=== PATIENT | male | born 1950 | race Caucasian/White ===

== ENCOUNTER → 2023-09-26 09:36 | Outpatient (REF) | payer MEDICARE, OTHER, SELFPAY | LOC: RAD 09:36 | PROVIDERS: ATTENDING PHYSICIAN Internal Medicine Cardiovascular Disease; FAMILY PHYSICIAN Internal Medicine | DX: I71.43 Infrarenal abdominal aortic aneurysm, without rupture (principal) | CPT/HCPCS: 76770 ==

== ENCOUNTER → 2024-03-15 10:38 | Outpatient (REF) | payer MEDICARE, OTHER, SELFPAY | LOC: DHCBC/DCA 10:38 | PROVIDERS: ATTENDING PHYSICIAN Internal Medicine Cardiovascular Disease; FAMILY PHYSICIAN Internal Medicine | DX: I25.10 Atherosclerotic heart disease of native coronary artery without angina pectoris (principal); I21.19 ST elevation (STEMI) myocardial infarction involving other coronary artery of inferior wall | CPT/HCPCS: 78452; 93017; A9500; J2785 ==

== ENCOUNTER → 2024-04-12 09:49 | Outpatient (REF) | payer MEDICARE, OTHER, SELFPAY | LOC: HWRAD 09:49 | PROVIDERS: ATTENDING PHYSICIAN Internal Medicine Cardiovascular Disease; FAMILY PHYSICIAN Internal Medicine; REFERRING PHYSICIAN Internal Medicine | DX: I65.29 Occlusion and stenosis of unspecified carotid artery (principal); Z87.891 Personal history of nicotine dependence; I65.23 Occlusion and stenosis of bilateral carotid arteries | CPT/HCPCS: 71271; 93880 ==

== ENCOUNTER → 2024-08-31 09:47 | Outpatient (REF) | payer MEDICARE, OTHER, SELFPAY | LOC: RAD 09:47 | PROVIDERS: ATTENDING PHYSICIAN Internal Medicine Cardiovascular Disease; FAMILY PHYSICIAN Internal Medicine | DX: I71.43 Infrarenal abdominal aortic aneurysm, without rupture (principal) | CPT/HCPCS: 76770 ==

== ENCOUNTER → 2024-10-01 11:59 | Outpatient (REF) | payer MEDICARE, OTHER, SELFPAY | LOC: MRI 3T 11:59 | PROVIDERS: ATTENDING PHYSICIAN Physician Assistant Medical; FAMILY PHYSICIAN Internal Medicine | DX: M48.061 Spinal stenosis, lumbar region without neurogenic claudication (principal); M54.9 Dorsalgia, unspecified | CPT/HCPCS: 72148 ==

== ENCOUNTER → 2024-11-08 13:50 | Outpatient (REF) | payer MEDICARE, OTHER, SELFPAY | LOC: RAD 13:50 | PROVIDERS: ATTENDING PHYSICIAN Urology; FAMILY PHYSICIAN Internal Medicine | DX: R31.9 Hematuria, unspecified (principal); R82.81 Pyuria | CPT/HCPCS: 76770 ==

== ENCOUNTER → 2025-03-24 11:56 | Outpatient (REF) | payer MEDICARE, OTHER, SELFPAY | LOC: SDS 11:56 | PROVIDERS: ATTENDING PHYSICIAN Urology; FAMILY PHYSICIAN Internal Medicine | DX: N40.3 Nodular prostate with lower urinary tract symptoms (principal) | CPT/HCPCS: 72197; A9575 ==

== ENCOUNTER → 2025-04-28 09:00 | Outpatient (REF) | payer MEDICARE, OTHER, SELFPAY ==
[2025-04-28 10:26] LABS: Urine Character Clear (Clear)
[2025-04-28 10:49] LABS: Urine Red Blood Cell 0-2 /HPF (0-2)
== END ==
LOC: REG 09:00
PROVIDERS: ATTENDING PHYSICIAN Urology; FAMILY PHYSICIAN Internal Medicine
DX: N39.0 Urinary tract infection, site not specified (principal); Z01.818 Encounter for other preprocedural examination
CPT/HCPCS: 81003; 81015; 87086

== ENCOUNTER → 2025-05-10 09:54 | Outpatient (REF) | payer MEDICARE, OTHER, SELFPAY | LOC: HWRAD 09:54 | PROVIDERS: ATTENDING PHYSICIAN Internal Medicine; FAMILY PHYSICIAN Internal Medicine | DX: Z87.891 Personal history of nicotine dependence (principal) | CPT/HCPCS: 71271 ==